=== PATIENT | female | born 1965 | race Caucasian/White ===

== ENCOUNTER 2017-04-16 05:31 | Emergency (ER) | payer BC ==
--- NOTE | 2017-04-16 05:46 | ERNOTE ---
Back Pain ER HPI Presenting Symptoms: injury/pain to back Time Seen by Provider: 04/16/17 05:45 Source: patient, family Exam Limitations: no limitations Immunizations: IMMUNIZATION HX Immunizations Up to Date Yes History of Influenza Vaccine No Hx Pneumococcal Vaccination No Allergies/Adverse Reactions: Allergies No Known Allergies Allergy (Verified 04/16/17 05:38) Home Medications: HOME MEDICATIONS Fluticasone Propionate [Flonase] 1 spray NS DAILY 07/26/15 [Last Taken Unknown] Losartan/Hydrochlorothiazide [Hyzaar 100-25 Tablet] 1 each PO DAILY 07/26/15 [ Last Taken Unknown] Atorvastatin Calcium [Lipitor] 10 mg PO DAILY 04/16/17 [Last Taken Unknown] Cholecalciferol (Vitamin D3) [Vitamin D3] 2,000 unit PO DAILY 04/16/17 [Last Taken Unknown] Folic Acid 1 mg PO DAILY 04/16/17 [Last Taken Unknown] Hydroxychloroquine Sulfate [Plaquenil] 200 mg PO DAILY 04/16/17 [Last Taken Unknown] Methotrexate/Pf [Rasuvo 25 mg/0.5 ml Autoinj] 25 mg SQ Q7D 04/16/17 [Last Taken 04/15/17] Ubidecarenone [Co Q-10] 100 mg PO DAILY 04/16/17 [Last Taken Unknown] Vitamin B Complex 1 each PO DAILY 04/16/17 [Last Taken Unknown] metFORMIN HCL [Metformin HCl ER] 500 mg PO HS 04/16/17 [Last Taken Unknown] sulfaSALAzine [Sulfasalazine Dr] 1,000 mg PO BID 04/16/17 [Last Taken Unknown] traMADol HCL [Ultram] 50 mg PO Q6H PRN 04/16/17 [Last Taken Unknown] Narrative: Pt states she had onset of left lower back pain 3 days ago and has worsened since then. She started taking tramadol she had and it was helping the pain somewhat but this am her pain increased and radiates down to mid thigh. No know injury. Did have previous lumbar ruptured disk that was repaired by Dr. Flynn a few years ago. This has similar radiation pattern Timing: Reports: getting worse Quality/Severity: Reports: moderate, severe, stabbing Location of pain: Reports: lower back, radiating to lf thigh/leg Activities at Onset: Reports: none Recent Injury?: Reports: no Modifying Factors - (Improves): Reports: nothing Modifying Factors - (Worsens): Reports: movement to right Associated Symptoms: Reports: sweating, difficulty walking. Denies: constipation/incontinence, problems urinating Review of Systems - Review of Systems Constitutional: Absent: recent illness, fever EYE: Present: no symptoms reported ENT: Present: no symptoms reported Respiratory: Present: no symptoms reported Cardiology: Present: no symptoms reported Gastrointestinal/Abdominal: Present: nausea Genitourinary: Present: no symptoms reported Musculoskeletal: Present: See HPI Skin: Present: no symptoms reported Neurological: Present: numbness, tingling - in her hands Endocrine: Present: no symptoms reported Hematologic/Lymphatic: Present: no symptoms reported Psych: Present: no symptoms reported - Patient's Past Medical History Patient History - Medical: Diabetes Type 2, GERD Patient History - Cardiac/Respiratory: Hypertension, Hyperlipidemia Patient History - Cancer: Melanoma Patient History - Surgical Procedures: Cancer Surgery, D & C, T & A Patient History - Other: None LMP (females 10-50): Menopausal LMP (Calendar): 07/13/15 - Social History Living Situations: home Abuse History: No History of abuse Psych History: No pertinent hx Alcohol Use: none Drug Use: none - Immunizations Immunizations Up to Date: Yes Hx Pneumococcal Vaccination: No History of Influenza Vaccine: No Physical Exam - Physical Exam General Appearance: Present: wd/wn, alert, mild distress, anxious Eye Exam: Normal inspection: bilateral Ears, Nose, Throat: Present: normal ENT inspection Neck: Present: normal inspection, supple Respiratory: Present: no respiratory distress, no accessory muscle use Gastrointestinal/Abdominal: Present: normal bowel sounds, nontender Back Exam: Present: muscle spasm, other - right SI tenderness Extremity Exam: Present: non-tender, no edema, other - Pain with SIOBHAN test on the left Neurological Exam: Present: alert, oriented, normal mood/affect, no motor/ sensory deficits, other - SLR equivical on the left with radiation to mid thigh at 20 degrees Skin Exam: Present: normal color, warm/dry Lymphatic Exam: Present: no adenopathy ED Progress - Results and Orders Patient's Lab Results:: I have reviewed the patient's lab results. - Vital Signs Patient's Vital Signs:: I have reviewed the patient's vital signs. Vital Signs: Vital Signs 04/16/17 04/16/17 05:33 05:38 Temperature 36.0 C L Pulse Rate 62 68 Respiratory 16 17 Rate Blood Pressure 131/72 131/72 O2 Sat by Pulse 100 100 Oximetry - Progress/Reassessment Chief Complaint: Back Pain Progress:: Unchanged - Transfer of Care Physician Sign Out: Henry Giraldo Receiving Physician: Yocasta Kay Pending Results: Labs, X-ray results Expected Disposition: Admit Departure Clinical Impression: Chest pain - Departure Condition: Fair
[2017-04-16] MEDS ORDERED: KETOROLAC TROMETHAMINE 30 MG/ML VIAL IV ONE (06:02)
[2017-04-16] MEDS ORDERED: KETOROLAC TROMETHAMINE 30 MG/ML VIAL ONE (06:02)
[2017-04-16] MEDS ORDERED: ORPHENADRINE CITRATE 30 MG/ML VIAL IV ONE (06:32)
[2017-04-16] MEDS ORDERED: ORPHENADRINE CITRATE 30 MG/ML VIAL ONE (06:47)
--- OUTSIDE RECORDS SUMMARY | 2017-04-16 07:34 | XMS REPORT | Continuity of Care Document ---
:1965 Demographics Phone Unavailable Preferred Language Unknown Marital Status Unknown Anabaptism Affiliation Unknown Race Unknown Ethnic Group Unknown Author Organization [facility] ([facility]) [place] [address] Phone [phone] Care Team Providers Name Role Phone Unavailable Primary Care Provider Unavailable Source Comments This disclosure is being made pursuant to the Care Everywhere program, applicable federal and state laws, and may not contain all informaitonavailable regarding this patient.[facility] ([facility]) Active Allergies and Adverse Reactions Not on File Current Medications Not on file Active Problems Not on file Social History Tobacco Use Types Packs/Day Years Used Date Never Assessed Plan of Care Health Maintenance Due Date Last Done Comments HCV Screening 1965 Hepatitis B Vaccine (1 of 3 - Primary Series) 1965 Tdap Vaccine 1974 Lipid Disorder Screening 1981 MMR Vaccine 1981 Td Vaccine 1981 Pneumococcal Vaccine (1 of 3 - PCV13) 1982 Cervical Cancer Screening 1993 Mammogram 2003 Colonoscopy 10/30/2013 Influenza Vaccine: Seasonal (#1) 06/16/2016 Results from Last 3 Months Not on file
[2017-04-16] MEDS ORDERED: NALBUPHINE HCL 20 MG/ML AMPUL IV ONE (07:46)
[2017-04-16] MEDS ORDERED: ONDANSETRON HCL/PF 2 MG/ML VIAL IV ONE (07:46)
[2017-04-16] MEDS ORDERED: ONDANSETRON HCL/PF 2 MG/ML VIAL ONE (08:07)
[2017-04-16] MEDS ORDERED: NALBUPHINE HCL 20 MG/ML AMPUL ONE (08:08)
[2017-04-16 08:24] VITALS: BP 128/63
== END 2017-04-16 08:32 | disposition home or self-care (01) ==
LOC: ER 05:31
DX: R07.9 Chest pain, unspecified (principal); E11.9 Type 2 diabetes mellitus without complications; E78.5 Hyperlipidemia, unspecified; Z85.820 Personal history of malignant melanoma of skin
CPT/HCPCS: 96374; 96375; 99284; J2405